=== PATIENT | male | born 1945 | race Two or more races ===

== ENCOUNTER 2020-06-23 14:56 | Inpatient (IN) | payer OTHER ==
[~2020-06-23] VITALS: Ht 172.7 cm; Wt 72.6 kg
[~2020-06-23 14:56] MED LIST: AVODART0.5 MG PO; CIPRO500 MG PO; PLAVIX75 MG PO
--- NOTE | 2020-06-23 15:40 | NUR ---
PT ALERTA Y ORIENTADO X3 ESFERAS EN COMPANIA DE FAMILIAR. QUIEN REFIERE DOLOR ABDOMINAL LLQ.
--- NOTE | 2020-06-23 17:23 | NUR ---
SE ORIETNA PTE SOBRE EL TRATAMIENTO ORDENADO POR EL DR BERNAL SE CONECTA PTE A MONITOR CARDIACO Y OXYMETRIA DE PULSO, SE REALIZAN MUESTRAS DE LABORATOIRO Y SE LE LELA ASEO PERSONAL PTE SE MANTIENE EN OBSERVACION Y BAJO TRATAMIENTO.
--- NOTE | 2020-06-24 00:10 | NUR ---
PACIENTE ALERTA Y ORIENTADO X3. EN POSICION SEMI SENTADO EN CAMA CON BARANDAS ELEVADAS EN UNIDAD DE DOLOR DE PECHO. CONECTADO A MONITOR CARDIACO Y OXIMTERIA DE PULSO. IV FLUID PATENTE Y ROYER DE EDEMA Y ERITEMA. SE ORIENTA SOBRE TX A RECIBIR Y REFIRIO ENTENDER. SE ADMINISTRO MEDICAMENTO ORDENADO POR MD. SE DESCONTINUO 300 ML DE ORINA AMARILLO INTENSO. SE MANTIENE BAJO OBSERVACION POR CAMBIOS SIGNIFICATIVOS.
--- NOTE | 2020-06-24 00:13 | NUR ---
PENDIENTE VISITA DE DR. WYNNE.
--- NOTE | 2020-06-24 06:03 | NUR ---
PACIENTE ALERTA Y ORIENTADO X3. SE ORIENTA SOBRE TX A RECIBIR Y REFIRIO ENTENDER. SE ADIMINISTRO MEDICAMENTO ORDENADO POR .
--- NOTE | 2020-06-24 07:39 | NUR ---
SE RECIBE PTE MASCULINO DE 74 YRS ALERTA CONCIENTE Y TRANQUILO EN LA UNIDAD DE CHEST PAIN. PTE CONECTADO A MONITOR CARDIACO. PTE CON .9NSS A 100 ML HRS Y BAJANDO ANTIBIOTICO DE ZOSYN 3.375GM. SE LE SHERRI S/V LA CUAL SE DOCUEMTA. PTE ES EVALUADADO POR EL CIRUJANO EL SHERRELL QUIEN EVALUA PTE Y REFIERE QUIE VA A VENIR A SER EVALUADO POR EL MEDICO INTERNISTA . SE MANTIENE BAJO OBSERVACION Y SE MANTIENE ROYER DE DOLOR AL MOMENTO.
[2020-06-27] MEDS ORDERED: LOSARTAN-HCTZ1 EACH (08:16)
[2020-06-27] MEDS ORDERED: SIMVASTATIN20 MG (08:16)
== END 2020-06-28 10:40 | disposition home or self-care (01) | DRG 372 ==
LOC: ER 14:56 → SEC-K 06-24 07:36 → SURH 06-24 07:36
PROVIDERS: ADMIT Surgery; ATTEND Surgery
DX: K35.890 Other acute appendicitis without perforation or gangrene (principal); E27.49 Other adrenocortical insufficiency; N40.0 Benign prostatic hyperplasia without lower urinary tract symptoms; Z95.1 Presence of aortocoronary bypass graft

== ENCOUNTER 2020-07-04 22:06 | Inpatient (IN) | payer OTHER ==
[~2020-07-04] VITALS: Ht 175.3 cm; Wt 72.6 kg
[~2020-07-04 22:06] MED LIST changes: +LOSARTAN-HCTZ1 EACH; +SIMVASTATIN20 MG
[2020-07-06] MEDS ORDERED: AMOX-CLAV 875-1 EACH (08:47)
[2020-07-06] MEDS ORDERED: SIMVASTATIN20 MG (08:47)
== END 2020-07-08 11:13 | disposition home or self-care (01) | DRG 373 ==
LOC: ER 22:06 → SURG 07-05 08:20
PROVIDERS: ADMIT Surgery; ATTEND Surgery
PROC: 0W9G30Z Drainage of Peritoneal Cavity with Drainage Device, Percutaneous Approach (ICD-10-PCS; principal; 2020-07-05)
PROC: BW20ZZZ Computerized Tomography (CT Scan) of Abdomen (ICD-10-PCS; 2020-07-05)
DX: K65.1 Peritoneal abscess (principal); B96.29 Other Escherichia coli [E. coli] as the cause of diseases classified elsewhere

== ENCOUNTER 2020-08-10 10:08 | Inpatient (IN) | payer OTHER ==
[~2020-08-10] VITALS: Ht 180.3 cm; Wt 68.0 kg
[~2020-08-10 10:08] MED LIST changes: +AMOX-CLAV 875-1 EACH
== END 2020-08-11 07:04 | disposition expired | DRG 871 ==
LOC: ER 10:08 → SEC-K 14:54 → ICU-2 18:20
PROVIDERS: ADMIT Surgery; ATTEND Surgery
PROC: 4A033R1 Measurement of Arterial Saturation, Peripheral, Percutaneous Approach (ICD-10-PCS; principal; 2020-08-10)
PROC: BW21ZZZ Computerized Tomography (CT Scan) of Abdomen and Pelvis (ICD-10-PCS; 2020-08-10)
PROC: BW28ZZZ Computerized Tomography (CT Scan) of Head (ICD-10-PCS; 2020-08-10)
PROC: CB2YYZZ Tomographic (Tomo) Nuclear Medicine Imaging of Respiratory System using Other Radionuclide (ICD-10-PCS; 2020-08-10)
DX: A41.51 Sepsis due to Escherichia coli [E. coli] (principal); J96.91 Respiratory failure, unspecified with hypoxia; K68.12 Psoas muscle abscess; Z20.822 Contact with and (suspected) exposure to COVID-19; F17.290 Nicotine dependence, other tobacco product, uncomplicated; D69.59 Other secondary thrombocytopenia; J43.9 Emphysema, unspecified